=== PATIENT | female | born 1990 | race Two or more races ===

== ENCOUNTER 2016-10-30 00:07 | Inpatient (IN) | payer MEDICAID ==
[2016-10-30] MEDS ORDERED: Penicillin G Potassium 5 MILLUNITS in Sodium Chloride 0.9% 100 ML IV ONE (03:00)
[2016-10-30] MEDS ORDERED: Sodium Chloride 0.9% 100 ML ONE (03:04)
[2016-10-30] MEDS ORDERED: fentaNYL 100 MCG/2 ML SDV IVPUSH PRN (04:14)
[2016-10-30] MEDS ORDERED: Lidocaine 1% 50 ML MDV INJECT PRN (05:39)
[2016-10-30] MEDS ORDERED: Penicillin G Potassium 2.5 MILLUNITS in Sodium Chloride 0.9% 100 ML IV SCH (07:00)
[2016-10-30] MEDS ORDERED: Sodium Chloride 0.9% 10 ML Syringe FLUSH PRN ×2 (07:23→07:27)
[2016-10-30] MEDS ORDERED: Acetaminophen 325 MG Tab PO PRN (07:27)
--- NOTE | 2016-10-30 07:35 | PCM.LDHP ---
L&D History of Present Illness - General Date of Service: 10/30/16 (prom) Admit Problem/Dx: Patient Status Order with Admit Dx/Problem 10/30/16 07:24 Patient Status [ADT] Routine Patient Status: Outpatient Admission Diagnosis/Problem: - planned Reason for Admit: PROM gbs positive Nurse Unit Type: Labor and Delivery Admitting Physician: Liliana Cota Attending Physician: Liliana Cota Admission Diagnosis/Problem Admission Diagnosis/Problem - planned Source of Information: Patient History Limitations: Reports: No limitations - History of Present Illness Introduction:: This who is 26 yr old who is 37 6/7 weeks gestation presented with SROM at home, not in labor. She was Amniosure positive with lots of clear fluid. CE 1 /50/-1 at 0200 per nursing staff. Monitored for labor during the night. contractions every 6 minutes this morning at 0600. She is GBS positive and Penicillin was started after admission last night. Pitocin was started at 0600 this morning to augment contractions. At 0730 CE 3/100/-1 bloody show and leaking clear fluid. Baseline HR 130, moderate variability, Cat 1 strip. Labs ABO Bpos, Rubella immune, GBS pos, HIV? Timing/Duration: Reports: minutes: (6) Location, : Reports: Abdomen Quality: Reports: Pressure Severity: moderate Improves with: Reports: Rest Associated Symptoms: Reports: vaginal fluid - Related Data Allergies/Adverse Reactions: Allergies Allergy/AdvReac Type Severity Reaction Status Date / Time No Known Allergies Allergy Verified 06/19/13 16:16 Home Medications: Home Meds Vits #90/Iron Fum/FA [ Formula] 1 each PO ASDIRECTED 06/19/13 [ History] Past Medical History - Past Health History Medical/Surgical History: Denies Medical/Surgical History Genitourinary History: Reports: None SOCIAL MEDIA ASSISTANT History: Reports: , Spontaneous : 3 Para: 0 LMP (Approximate): (ANGELITA 11/14/16) Other OB/BYN History: Bilateral breast reduction Social & Family History - Family History OBGYN: Reports: None Musculoskeletal: Reports: Arthritis Other Musculoskeletal Family History: mom and grandma Other Oncologic Family History: grandpa but not sure what kind - Tobacco Use Smoking Status *Q: Never Smoker Second Hand Smoke Exposure: No - Caffeine Use Caffeine Use: Reports: Coffee Other Caffeine Use: 1 cup per day - Alcohol Use Days Per Week of Alcohol Use: 0 - Recreational Drug Use Recreational Drug Use: No H&P Review of Systems - Review of Systems: Review Of Systems: See Below General: Reports: no symptoms HEENT: Reports: no symptoms Pulmonary: Reports: no symptoms Cardiovascular: Reports: no symptoms Gastrointestinal: Reports: No symptoms Genitourinary: Reports: no symptoms Musculoskeletal: Reports: no symptoms Skin: Reports: no symptoms Psychiatric: Reports: no symptoms Neurological: Reports: no symptoms Hematologic/Lymphatic: Reports: no symptoms Immunologic: Reports: no symptoms L&D Exam - Exam Exam: See Below - Vital Signs Vital Signs: Last Vital Signs Temp 98.2 F 10/30/16 06:45 Pulse 81 10/30/16 07:00 Resp 16 10/30/16 07:00 BP 118/65 10/30/16 07:00 Pulse Ox 95 10/30/16 04:50 Weight: 190 lb - OB Specific Contraction Duration (sec): 110-140 Contraction Frequency (min): 2.5-4 Contraction Intensity: Moderate movement: active heart tones: present heart tones per min: 130 Heart Rate (FHR) Variability: Moderate (6-25 bmp) Presentation: Vertex - Kumar Score Kumar Score Cervix Position: Anterior Kumar Score Consistency: Soft [place] Score Effacement: >80% Kumar Score Dilation: 3-4 cm Kumar Score Infant's Station: +1, +2 Kumar Score Total: 12 - Exam General: alert, oriented HEENT: PERRLA, Conjunctiva clear, Mucosa moist & pink, Pupils equal Neck: supple, trachea midline Lungs: Clear to auscultation, Normal respiratory effort Cardiovascular: regular rate, regular rhythm Abdomen: normal bowel sounds, soft Genitourinary: Normal external exam Back Exam: normal inspection, full range of motion Extremities: normal inspection Skin: warm, dry, intact Neurological: cranial nerves intact, reflexes equal bilateral Psychiatric: alert, normal affect, normal mood - Patient Data Lab Results last 24 hrs: Laboratory Results - last 24 hr 10/30/16 10/30/16 10/30/16 Range/Units 00:26 00:26 00:38 WBC 10.6 (4.5-11.0) K/uL RBC 4.45 (3.30-5.50) M/uL Hgb 12.7 (12.0-15.0) g/dL Hct 38.4 (36.0-48.0) % MCV 86 (80-98) fL MCH 29 (27-31) pg MCHC 33 (32-36) % Plt Count 188 (150-400) K/uL Urine Color Yellow Urine Appearance Clear Urine pH 6.5 (4.5-8.0) Ur Specific [place] 1.015 (1.008-1.030) Urine Protein Negative (NEGATIVE) mg/dL Urine Glucose (UA) Normal (NEGATIVE) mg/dL Urine Ketones Negative (NEGATIVE) mg/dL Urine Occult Blood Large (NEGATIVE) Urine Nitrite Negative (NEGATIVE) Urine Bilirubin Negative (NEGATIVE) Urine Urobilinogen Normal (NORMAL) mg/dL Ur Leukocyte Esterase Negative (NEGATIVE) Urine RBC 10-20 H (0-5) Urine WBC 0-5 (0-5) Ur Epithelial Cells Moderate Amorphous Sediment Few Urine Bacteria Rare Urine Mucus Few Membrane Rupture Positive H (NEGATIVE) Urine Opiates Screen (NEGATIVE) Ur Oxycodone Screen (NEGATIVE) Urine Methadone Screen (NEGATIVE) Ur Propoxyphene Screen (NEGATIVE) Ur Barbiturates Screen (NEGATIVE) Ur Tricyclics Screen (NEGATIVE) Ur Phencyclidine Scrn (NEGATIVE) Ur Amphetamine Screen (NEGATIVE) U Methamphetamines Scrn (NEGATIVE) Urine MDMA Screen (NEGATIVE) U Benzodiazepines Scrn (NEGATIVE) U Cocaine Metab Screen (NEGATIVE) U Marijuana (THC) Screen (NEGATIVE) 10/30/16 Range/Units 01:31 WBC (4.5-11.0) K/uL RBC (3.30-5.50) M/uL Hgb (12.0-15.0) g/dL Hct (36.0-48.0) % MCV (80-98) fL MCH (27-31) pg MCHC (32-36) % Plt Count (150-400) K/uL Urine Color Urine Appearance Urine pH (4.5-8.0) Ur Specific [place] (1.008-1.030) Urine Protein (NEGATIVE) mg/dL Urine Glucose (UA) (NEGATIVE) mg/dL Urine Ketones (NEGATIVE) mg/dL Urine Occult Blood (NEGATIVE) Urine Nitrite (NEGATIVE) Urine Bilirubin (NEGATIVE) Urine Urobilinogen (NORMAL) mg/dL Ur Leukocyte Esterase (NEGATIVE) Urine RBC (0-5) Urine WBC (0-5) Ur Epithelial Cells Amorphous Sediment Urine Bacteria Urine Mucus Membrane Rupture (NEGATIVE) Urine Opiates Screen Negative (NEGATIVE) Ur Oxycodone Screen Negative (NEGATIVE) Urine Methadone Screen Negative (NEGATIVE) Ur Propoxyphene Screen Negative (NEGATIVE) Ur Barbiturates Screen Negative (NEGATIVE) Ur Tricyclics Screen Negative (NEGATIVE) Ur Phencyclidine Scrn Negative (NEGATIVE) Ur Amphetamine Screen Negative (NEGATIVE) U Methamphetamines Scrn Negative (NEGATIVE) Urine MDMA Screen Negative (NEGATIVE) U Benzodiazepines Scrn Negative (NEGATIVE) U Cocaine Metab Screen Negative (NEGATIVE) U Marijuana (THC) Screen Negative (NEGATIVE) Result Diagrams: 10/30/16 00:38 - Problem List (1) Intrauterine SNOMED Code(s): 65764724 ICD Code: Z33.1 - STATE, INCIDENTAL Status: Acute Current Visit : Yes (2) Active labor SNOMED Code(s): 39355325 ICD Code: [id number] - Status: Acute Current Visit: Yes (3) PROM (premature rupture of membranes) SNOMED Code(s): 72507686 ICD Code: O42.90 - ANNAMARIA ROM, 7TH0 BETW RUPT & ONST LABR, UNSP WEEKS OF GEST Status: Acute Current Visit: Yes Qualifiers: PROM onset of labor timing: onset of labor within 24 hours of rupture PROM gestational age: full term Qualified Code(s): O42.02 - Full-term premature rupture of membranes, onset of labor within 24 hours of rupture Problem List Initiated/Reviewed/Updated: Yes Orders Last 24hrs: Active Orders 24 hr Category Date Time Status Patient Status [ADT] Routine ADT 10/30/16 07:24 Ordered Antiembolic Devices [RC] .Routine Care 10/30/16 07:28 Ordered Bedrest Bathroom Privileges [RC] ASDIRECTED Care 10/30/16 07:23 Ordered Communication Order [RC] ASDIRECTED Care 10/30/16 07:24 Ordered Heart Tones [RC] PER UNIT ROUTINE Care 10/30/16 07:24 Ordered May Shower [RC] ASDIRECTED Care 10/30/16 07:23 Ordered Notify Provider Vital Signs [RC] PRN Care 10/30/16 07:23 Ordered Notify Provider [RC] PRN Care 10/30/16 07:24 Ordered OB Check [OM.PC] Click to Edit Care 10/30/16 00:24 Ordered Up ad Hoda [RC] ASDIRECTED Care 10/30/16 07:23 Ordered VTE/DVT Education [RC] Click to Edit Care 10/30/16 07:28 Ordered Vital Signs [RC] PER UNIT ROUTINE Care 10/30/16 07:24 Ordered Acetaminophen [Tylenol] Med 10/30/16 07:27 Ordered 650 mg PO Q4H PRN Lidocaine 1% [Xylocaine 1%] Med 10/30/16 05:39 Active 50 ml INJECT ASDIRECTED PRN Oxytocin/Normal Saline [Pitocin in NS 20 Units/1,000 ML Med 10/30/16 05:45 Active ] 20 unit in 1,000 ml IV TITRATE Penicillin G Potassium [Pfizerpen] 2.5 millunits Med 10/30/16 07:00 Active Sodium Chloride 0.9% [Normal Saline] 100 ml IV Q4H Sodium Chloride 0.9% [Saline Flush] Med 10/30/16 07:23 Ordered 10 ml FLUSH ASDIRECTED PRN Sodium Chloride 0.9% [Saline Flush] Med 10/30/16 07:27 Ordered 10 ml FLUSH ASDIRECTED PRN fentaNYL [Sublimaze] Med 10/30/16 04:14 Active 100 mcg IVPUSH ONETIME PRN DVT/VTE Prophylaxis Reflex [OM.PC] Routine Oth 10/30/16 07:27 Ordered Saline Lock Insert [OM.PC] Routine Oth 10/30/16 07:24 Ordered Saline Lock Insert [OM.PC] Routine Oth 10/30/16 07:27 Ordered Resuscitation Status Routine Resus Stat 10/30/16 07:23 Ordered Medication Orders Fentanyl (Sublimaze) 100 mcg IVPUSH ONETIME PRN PRN Reason: Pain Penicillin G Potassium 2.5 (millunits/ Sodium Chloride) 100 mls @ 100 mls/hr IV Q4H JEISON Oxytocin/Sodium Chloride (Pitocin In Ns 20 Units/1,000 Ml) 20 unit in 1,000 mls @ 3 mls/hr IV TITRATE JEISON; 1 MUNITS/MIN PRN Reason: Protocol Last Titration: 10/30/16 06:46 Dose: 3 munits/min, 9 mls/hr Admin: 10/30/16 06:17 Dose: 1 munits/min, 3 mls/hr Lidocaine HCl (Xylocaine 1%) 50 ml INJECT ASDIRECTED PRN PRN Reason: repair Sodium Chloride (Saline Flush) 10 ml FLUSH ASDIRECTED PRN PRN Reason: Keep Vein Open Assessment/Plan Comment:: 26 yr old 37 6/7 PROM augment contractions with pitocin GBS, treated ABO B pos Planning for vaginal delivery Monitor for active labor Pain medication per patient request continue antibiotics until delivery Call [facility] and get HIV record if unable to obtain do a stat HIV
[2016-10-30] MEDS: Penicillin G Potassium 2.5 MILLUNITS in Sodium Chloride 0.9% 100 ML IV SCH ×4 (08:23→21:05)
[2016-10-30] MEDS ORDERED: fentaNYL 100 MCG/2 ML SDV IVPUSH ONE (10:53)
[2016-10-30] MEDS ORDERED: ePHEDrine 50 MG/ML SDV ONE (11:19)
--- NOTE | 2016-10-30 11:45 | PCM.PNLD ---
Labor Progress Note - VS & Meds Vital Signs: Last Vital Signs Temp 97.6 F 10/30/16 08:00 Pulse 86 10/30/16 08:00 Resp 18 10/30/16 08:00 BP 108/86 10/30/16 08:00 Pulse Ox 95 10/30/16 04:50 Active Medications: Current Medications Acetaminophen (Tylenol) 650 mg PO Q4H PRN PRN Reason: Pain (Mild 1-3) and fever Fentanyl (Sublimaze) 100 mcg IVPUSH ONETIME PRN PRN Reason: Pain Last Admin: 10/30/16 09:36 Dose: 100 mcg Oxytocin/Sodium Chloride (Pitocin In Ns 20 Units/1,000 Ml) 20 unit in 1,000 mls @ 3 mls/hr IV TITRATE JEISON; 1 MUNITS/MIN PRN Reason: Protocol Last Titration: 10/30/16 06:46 Dose: 3 munits/min, 9 mls/hr Penicillin G Potassium 2.5 (millunits/ Sodium Chloride) 100 mls @ 200 mls/hr IV Q4H JEISON Last Admin: 10/30/16 08:23 Dose: 200 mls/hr Lidocaine HCl (Xylocaine 1%) 50 ml INJECT ASDIRECTED PRN PRN Reason: repair Sodium Chloride (Saline Flush) 10 ml FLUSH ASDIRECTED PRN PRN Reason: Keep Vein Open Sodium Chloride (Saline Flush) 10 ml FLUSH ASDIRECTED PRN PRN Reason: Keep Vein Open Discontinued Medications Ephedrine Sulfate (Ephedrine Sulfate) Confirm Administered Dose 50 mg .ROUTE .STK-MED ONE Stop: 10/30/16 11:20 Fentanyl (Sublimaze) 100 mcg IVPUSH ONETIME ONE Stop: 10/30/16 10:54 Last Admin: 10/30/16 11:00 Dose: 100 mcg Penicillin G Potassium 5 (millunits/ Sodium Chloride) 100 mls @ 100 mls/hr IV ONETIME ONE Stop: 10/30/16 03:59 Last Admin: 10/30/16 03:11 Dose: 100 mls/hr Penicillin G Potassium 2.5 (millunits/ Sodium Chloride) 100 mls @ 100 mls/hr IV Q4H JEISON Last Admin: 10/30/16 10:04 Dose: Not Given Sodium Chloride (Normal Saline) Confirm Administered Dose 100 mls @ as directed .ROUTE .STK-MED ONE Stop: 10/30/16 03:05 Last Admin: 10/30/16 03:17 Dose: Not Given - Uterine Contractions Uterine Monitoring Mode: Palpation Contraction Frequency (min): 2-5 Contraction Duration (sec): 100-160 Contraction Intensity: Moderate to Strong Uterine Resting Tone: Soft - Monitoring Heart Rate (FHR) Variability: Moderate (6-25 bmp) Accelerations: Present, 15x15 Decelerations: Early Strip Review: Category I - Vaginal Exam Dilation (cm): 6-7 Effacement (Percent): 100 Station: 1 Cervical Position: Anterior Sterile Vaginal Exam Performed By: Liliana Cota Vaginal Exam Comment: Nice progress to active labor - Labor Progress (Free Text) Labor Progress: Epidural for pain management per patient request. Plan to let her labor down after complete planning vaginal delivery
[2016-10-30] MEDS ORDERED: Ropivacaine 100 ML ONE (11:55)
[2016-10-30] MEDS ORDERED: Lanolin 100% Cream 40 GM Tube TOP PRN (13:53)
[2016-10-30] MEDS ORDERED: Acetaminophen/Codeine 300-30 MG Tab PO PRN (13:53)
--- NOTE | 2016-10-30 14:07 | PCM.DEL ---
L & D Note - General Info Date of Service: 10/30/16 () Mother's Due Date: 11/14/16 - Delivery Note Labor: spontaneous Delivery Outcome: Livebirth Delivery Method: Spontaneous Vaginal Delivery Delivery Mode: Spontaneous Presentation: Vertex Nuchal cord: none Anesthesia Type: Epidural Amniotic Fluid Description: Clear Episiotomy Type: None Laceration: 1st degree, perineal (2 stitch repair) Suture type: chromic Suture size: 3-0 Placenta: intact, spontaneous Cord: 3 vessels Estimated blood loss: 50 Resuscitation needed: No : bulb syringe, stimulated, warmed, blanket used Provider: Liliana Cota Score 1 min: 9 Score 5 min: 9 Score 10 min: 9 Second Stage Interventions: Reports: Laboring Down, Pushing Effectively, Pushing , McRobert's Position Delivery Comments (Free Text/Narrative):: This 26 year old delivered a viable female in RAMESH position via at 1335. Baby was placed in mother's abdomen where she was dried and stimulated. Apgars of 9,9,9. Three vessel cord. She transitioned well. Placenta expressed spontaneously intact chowdhury with active management of third stage used. Small perineal tear repaired with 2 stitches of 3-0 vicryl. No lacerations found to vagina, cervix, rectum. EBL 50cc Mother and baby to post and nursery in stable condition. weight 6-4.7 First stage 1615-2777 Second stage 9620-9875, was complete at 1248 but labored down before pushing Third stage 9308-3722 - General Info Date of Service: 10/30/16 Admission Dx/Problem (Free Text): Patient Status Order with Admit Dx/Problem 10/30/16 07:24 Patient Status [ADT] Routine Patient Status: Outpatient Admission Diagnosis/Problem: - planned Reason for Admit: PROM gbs positive Nurse Unit Type: Labor and Delivery Admitting Physician: Liliana Cota Attending Physician: Liliana Cota Admission Diagnosis/Problem Admission Diagnosis/Problem - planned Functional Status: Reports: pain controlled - Review of Systems General: Reports: no symptoms HEENT: Reports: no symptoms Pulmonary: Reports: no symptoms Cardiovascular: Reports: no symptoms Gastrointestinal: Reports: No symptoms Genitourinary: Reports: no symptoms Musculoskeletal: Reports: no symptoms Skin: Reports: no symptoms Neurological: Reports: no symptoms Psychiatric: Reports: no symptoms - Patient Data Vitals - most recent: Last Vital Signs Temp 98.5 F 10/30/16 12:00 Pulse 96 10/30/16 13:00 Resp 16 10/30/16 13:00 BP 110/65 10/30/16 13:00 Pulse Ox 99 10/30/16 13:00 Weight - most recent: 190 lb I&O - last 24 hours: Intake & Output 10/29/16 10/30/16 10/30/16 22:59 06:59 14:59 Intake Total 1000 100 Balance 1000 100 Lab Results last 24 hrs: Laboratory Results - last 24 hr 10/30/16 10/30/16 10/30/16 Range/Units 00:26 00:26 00:38 WBC 10.6 (4.5-11.0) K/uL RBC 4.45 (3.30-5.50) M/uL Hgb 12.7 (12.0-15.0) g/dL Hct 38.4 (36.0-48.0) % MCV 86 (80-98) fL MCH 29 (27-31) pg MCHC 33 (32-36) % Plt Count 188 (150-400) K/uL Urine Color Yellow Urine Appearance Clear Urine pH 6.5 (4.5-8.0) Ur Specific [place] 1.015 (1.008-1.030) Urine Protein Negative (NEGATIVE) mg/dL Urine Glucose (UA) Normal (NEGATIVE) mg/dL Urine Ketones Negative (NEGATIVE) mg/dL Urine Occult Blood Large (NEGATIVE) Urine Nitrite Negative (NEGATIVE) Urine Bilirubin Negative (NEGATIVE) Urine Urobilinogen Normal (NORMAL) mg/dL Ur Leukocyte Esterase Negative (NEGATIVE) Urine RBC 10-20 H (0-5) Urine WBC 0-5 (0-5) Ur Epithelial Cells Moderate Amorphous Sediment Few Urine Bacteria Rare Urine Mucus Few Membrane Rupture Positive H (NEGATIVE) Urine Opiates Screen (NEGATIVE) Ur Oxycodone Screen (NEGATIVE) Urine Methadone Screen (NEGATIVE) Ur Propoxyphene Screen (NEGATIVE) Ur Barbiturates Screen (NEGATIVE) Ur Tricyclics Screen (NEGATIVE) Ur Phencyclidine Scrn (NEGATIVE) Ur Amphetamine Screen (NEGATIVE) U Methamphetamines Scrn (NEGATIVE) Urine MDMA Screen (NEGATIVE) U Benzodiazepines Scrn (NEGATIVE) U Cocaine Metab Screen (NEGATIVE) U Marijuana (THC) Screen (NEGATIVE) 10/30/16 Range/Units 01:31 WBC (4.5-11.0) K/uL RBC (3.30-5.50) M/uL Hgb (12.0-15.0) g/dL Hct (36.0-48.0) % MCV (80-98) fL MCH (27-31) pg MCHC (32-36) % Plt Count (150-400) K/uL Urine Color Urine Appearance Urine pH (4.5-8.0) Ur Specific [place] (1.008-1.030) Urine Protein (NEGATIVE) mg/dL Urine Glucose (UA) (NEGATIVE) mg/dL Urine Ketones (NEGATIVE) mg/dL Urine Occult Blood (NEGATIVE) Urine Nitrite (NEGATIVE) Urine Bilirubin (NEGATIVE) Urine Urobilinogen (NORMAL) mg/dL Ur Leukocyte Esterase (NEGATIVE) Urine RBC (0-5) Urine WBC (0-5) Ur Epithelial Cells Amorphous Sediment Urine Bacteria Urine Mucus Membrane Rupture (NEGATIVE) Urine Opiates Screen Negative (NEGATIVE) Ur Oxycodone Screen Negative (NEGATIVE) Urine Methadone Screen Negative (NEGATIVE) Ur Propoxyphene Screen Negative (NEGATIVE) Ur Barbiturates Screen Negative (NEGATIVE) Ur Tricyclics Screen Negative (NEGATIVE) Ur Phencyclidine Scrn Negative (NEGATIVE) Ur Amphetamine Screen Negative (NEGATIVE) U Methamphetamines Scrn Negative (NEGATIVE) Urine MDMA Screen Negative (NEGATIVE) U Benzodiazepines Scrn Negative (NEGATIVE) U Cocaine Metab Screen Negative (NEGATIVE) U Marijuana (THC) Screen Negative (NEGATIVE) Med Orders - Current: Current Medications Acetaminophen (Tylenol) 650 mg PO Q4H PRN PRN Reason: Pain (Mild 1-3) and fever Acetaminophen/Codeine Phosphate (Tylenol With Codeine No.3 300mg/30mg) 1 tab PO Q4H PRN PRN Reason: Pain (moderate 4-6) Emollient Ointment (Lansinoh Hpa) 1 gm TOP ASDIRECTED PRN PRN Reason: Sore Nipples Fentanyl (Sublimaze) 100 mcg IVPUSH ONETIME PRN PRN Reason: Pain Last Admin: 10/30/16 09:36 Dose: 100 mcg Oxytocin/Sodium Chloride (Pitocin In Ns 20 Units/1,000 Ml) 20 unit in 1,000 mls @ 3 mls/hr IV TITRATE JEISON; 1 MUNITS/MIN PRN Reason: Protocol Last Titration: 10/30/16 06:46 Dose: 3 munits/min, 9 mls/hr Penicillin G Potassium 2.5 (millunits/ Sodium Chloride) 100 mls @ 200 mls/hr IV Q4H JEISON Last Admin: 10/30/16 12:18 Dose: 200 mls/hr Ibuprofen (Motrin) 600 mg PO Q6H PRN PRN Reason: mild pain or fever Lidocaine HCl (Xylocaine 1%) 50 ml INJECT ASDIRECTED PRN PRN Reason: repair Sodium Chloride (Saline Flush) 10 ml FLUSH ASDIRECTED PRN PRN Reason: Keep Vein Open Sodium Chloride (Saline Flush) 10 ml FLUSH ASDIRECTED PRN PRN Reason: Keep Vein Open Discontinued Medications Ephedrine Sulfate (Ephedrine Sulfate) Confirm Administered Dose 50 mg .ROUTE .[employer]-MED ONE Stop: 10/30/16 11:20 Fentanyl (Sublimaze) 100 mcg IVPUSH ONETIME ONE Stop: 10/30/16 10:54 Last Admin: 10/30/16 11:00 Dose: 100 mcg Penicillin G Potassium 5 (millunits/ Sodium Chloride) 100 mls @ 100 mls/hr IV ONETIME ONE Stop: 10/30/16 03:59 Last Admin: 10/30/16 03:11 Dose: 100 mls/hr Penicillin G Potassium 2.5 (millunits/ Sodium Chloride) 100 mls @ 100 mls/hr IV Q4H [facility] Last Admin: 10/30/16 10:04 Dose: Not Given Sodium Chloride (Normal Saline) Confirm Administered Dose 100 mls @ as directed .ROUTE .[employer]-MED ONE Stop: 10/30/16 03:05 Last Admin: 10/30/16 03:17 Dose: Not Given Ropivacaine (Naropin 0.2%) Confirm Administered Dose 100 mls @ as directed .ROUTE .[employer]-MED ONE Stop: 10/30/16 11:56 - Exam General: alert, oriented HEENT: Pupils equal, Pupils reactive Neck: supple Lungs: Clear to auscultation, Normal respiratory effort Cardiovascular: regular rate, regular rhythm Abdomen: soft, no tenderness (Female) Exam: Normal external exam, Enlarged uterus, Vaginal bleeding Back Exam: normal inspection, full range of motion Extremities: no edema Skin: warm, dry, intact Wound/Incisions: healing well Neurological: no new focal deficit Psy/Mental Status: alert, normal affect, normal mood - Problem List & Annotations (1) Intrauterine SNOMED Code(s): 39148600 Code(s): Z33.1 - STATE, INCIDENTAL Status: Acute Current Visit: Yes (2) Active labor SNOMED Code(s): 58750268 Code(s): QSE8500 - Status: Acute Current Visit: Yes (3) PROM (premature rupture of membranes) SNOMED Code(s): 82310178 Code(s): O42.90 - ANNAMARIA ROM, 7TH0 BETW RUPT & ONST LABR, UNSP WEEKS OF GEST Status: Acute Current Visit: Yes Qualifiers: PROM onset of labor timing: onset of labor within 24 hours of rupture PROM gestational age: full term Qualified Code(s): O42.02 - Full-term premature rupture of membranes, onset of labor within 24 hours of rupture (4) () SNOMED Code(s): 652679317 Code(s): Z78.9 - OTHER SPECIFIED HEALTH STATUS Status: Acute Current Visit: Yes (5) Delivery normal SNOMED Code(s): 33346952 Code(s): O80 - ENCOUNTER FOR FULL-TERM UNCOMPLICATED DELIVERY; Z37.9 - OUTCOME OF DELIVERY, UNSPECIFIED Status: Acute Current Visit: Yes - Problem List Review Problem List Initiated/Reviewed/Updated: Yes - My Orders Last 24 Hours: My Active Orders 10/30/16 00:24 OB Check [OM.PC] Click to Edit 10/30/16 04:14 fentaNYL [Sublimaze] 100 mcg IVPUSH ONETIME PRN 10/30/16 05:39 Lidocaine 1% [Xylocaine 1%] 50 ml INJECT ASDIRECTED PRN 10/30/16 05:45 Oxytocin/Normal Saline [Pitocin in NS 20 Units/1,000 ML] 20 unit in 1,000 ml IV TITRATE 10/30/16 07:23 Bedrest Bathroom Privileges [RC] ASDIRECTED May Shower [RC] ASDIRECTED Notify Provider Vital Signs [RC] PRN Up ad Hoda [RC] ASDIRECTED Sodium Chloride 0.9% [Saline Flush] 10 ml FLUSH ASDIRECTED PRN Resuscitation Status Routine 10/30/16 07:24 Communication Order [RC] ASDIRECTED Notify Provider [RC] PRN Vital Signs [RC] PER UNIT ROUTINE Saline Lock Insert [OM.PC] Routine 10/30/16 07:27 Acetaminophen [Tylenol] 650 mg PO Q4H PRN Sodium Chloride 0.9% [Saline Flush] 10 ml FLUSH ASDIRECTED PRN DVT/VTE Prophylaxis Reflex [OM.PC] Routine Saline Lock Insert [OM.PC] Routine 10/30/16 07:28 Antiembolic Devices [RC] .Routine VTE/DVT Education [RC] Click to Edit 10/30/16 08:00 Penicillin G Potassium [Pfizerpen] 2.5 millunits Sodium Chloride 0.9% [Normal Saline] 100 ml IV Q4H 10/30/16 13:53 Patient Status [ADT] Routine Vital Signs [RC] PFP Acetaminophen/Codeine [Tylenol with Codeine No.3 300MG/30MG] 1 tab PO Q4H PRN Ibuprofen [Motrin] 600 mg PO Q6H PRN Lanolin [Lansinoh HPA] 1 gm TOP ASDIRECTED PRN Assess Lochia [WOMSER] Per Unit Routine Assess Uterine Involution [WOMSER] Per Unit Routine 10/30/16 13:56 Ice Therapy [OM.PC] Per Unit Routine Perineal Care [OM.PC] Per Unit Routine Peripheral IV Discontinue [OM.PC] Routine Sitz Bath [OM.PC] Per Unit Routine 10/30/16 Dinner Regular Diet [DIET] 10/31/16 05:11 CBC WITH AUTO DIFF [HEME] AM - Assessment Assessment:: This 26 year old G3 now P1 at 1335 a viable female , no complications GBS positive and treated.. 48 hour stay. Routine cares - Plan Plan:: 26 yr old 37 6/7 PROM augment contractions with pitocin GBS, treated ABO B pos Planning for vaginal delivery Monitor for active labor Pain medication per patient request continue antibiotics until delivery Call [facility] and get HIV record if unable to obtain do a stat HIV 10/30/16 Routine care 48 hour stay support
[2016-10-30] MEDS: Ibuprofen 600 MG Tab PO PRN ×2 (14:45→23:26)
--- NOTE | 2016-10-30 23:38 | ANES ---
DATE OF SERVICE: 10/30/2016 Ms. Bonilla is a 26-year-old female in the obstetrics unit. Matilde Cota asked me to come and evaluate her for a labor epidural. She is a 3 approximately 7 cm and having painful contractions. The risks and benefits of the procedure were explained to the patient and she wished to proceed with a labor epidural. Her back was prepped x3 with Betadine 1% lidocaine skin local was used. The epidural was placed at L3-L4 using a 17- gauge Tuohy needle loss of resistance technique. The epidural had very good feel throughout and the epidural space was easily identified. There was negative CSF, negative blood, and negative paresthesias noted. Therefore, a catheter was threaded to 13 cm at the skin. There were negative CSF, negative blood, and negative paresthesias with catheter as well. A 3 mL test dose of 1.5% lidocaine with epinephrine was given. This test dose was negative. The catheter was then secured with Tegaderm and tape. She was placed in a supine position. I did give her a bolus of 0.2% ropivacaine 12 mL. A bolus had very good results and I started drip of 0.2% ropivacaine at 12 mL/h. The vital signs remained stable throughout the procedure and they have elected as well. She had good relief from the epidural and we will continue to monitor her throughout her labor and delivery stay. Zander Molina CRNA /[id number]
[2016-10-31] MEDS: Ibuprofen 600 MG Tab PO PRN ×2 (07:35→21:09)
--- NOTE | 2016-10-31 08:40 | PCM.PNPP ---
- General Info Date of Service: 10/31/16 ( Day 1) Admission Dx/Problem (Free Text): Patient Status Order with Admit Dx/Problem 10/30/16 07:24 Patient Status [ADT] Routine Patient Status: Outpatient Admission Diagnosis/Problem: - planned Reason for Admit: PROM gbs positive Nurse Unit Type: Labor and Delivery Admitting Physician: Liliana Cota Attending Physician: Liliana Cota Admission Diagnosis/Problem Admission Diagnosis/Problem - planned Functional Status: Reports: pain controlled - Review of Systems General: Reports: no symptoms HEENT: Reports: no symptoms Pulmonary: Reports: no symptoms Cardiovascular: Reports: no symptoms Gastrointestinal: Reports: No symptoms Genitourinary: Reports: no symptoms Musculoskeletal: Reports: no symptoms Skin: Reports: no symptoms Neurological: Reports: no symptoms Psychiatric: Reports: no symptoms - General Info Date of Service: 10/31/16 - Patient Data Vital Signs - most recent: Last Vital Signs Temp 36.1 C 10/31/16 07:22 Pulse 68 10/31/16 07:22 Resp 16 10/31/16 07:22 BP 115/67 10/31/16 07:22 Pulse Ox 97 10/31/16 07:22 Weight - most recent: 86.183 kg I&O - last 24 hours: Intake & Output 10/30/16 10/31/16 10/31/16 22:59 06:59 14:59 Intake Total 900 900 Output Total 300 Balance 600 900 Lab Results - last 24 hrs: Laboratory Results - last 24 hr 10/31/16 Range/Units 05:00 WBC 11.5 H (4.5-11.0) K/uL RBC 4.22 (3.30-5.50) M/uL Hgb 12.2 (12.0-15.0) g/dL Hct 36.6 (36.0-48.0) % MCV 87 (80-98) fL MCH 29 (27-31) pg MCHC 33 (32-36) % Plt Count 180 (150-400) K/uL Neut % (Auto) 73 H (36-66) % Lymph % (Auto) 16 L (24-44) % [place] % (Auto) 11 H (2-6) % Eos % (Auto) 1 L (2-4) % Baso % (Auto) 0 (0-1) % Med Orders - Current: Current Medications Acetaminophen (Tylenol) 650 mg PO Q4H PRN PRN Reason: Pain (Mild 1-3) and fever Acetaminophen/Codeine Phosphate (Tylenol With Codeine No.3 300mg/30mg) 1 tab PO Q4H PRN PRN Reason: Pain (moderate 4-6) Emollient Ointment (Lansinoh Hpa) 0 gm TOP ASDIRECTED PRN PRN Reason: Sore Nipples Ibuprofen (Motrin) 600 mg PO Q6H PRN PRN Reason: mild pain or fever Last Admin: 10/31/16 07:35 Dose: 600 mg Lidocaine HCl (Xylocaine 1%) 50 ml INJECT ASDIRECTED PRN PRN Reason: repair Sodium Chloride (Saline Flush) 10 ml FLUSH ASDIRECTED PRN PRN Reason: Keep Vein Open Sodium Chloride (Saline Flush) 10 ml FLUSH ASDIRECTED PRN PRN Reason: Keep Vein Open Discontinued Medications Ephedrine Sulfate (Ephedrine Sulfate) Confirm Administered Dose 50 mg .ROUTE .STK-MED ONE Stop: 10/30/16 11:20 Last Admin: 10/30/16 14:47 Dose: Not Given Fentanyl (Sublimaze) 100 mcg IVPUSH ONETIME PRN PRN Reason: Pain Last Admin: 10/30/16 09:36 Dose: 100 mcg Fentanyl (Sublimaze) 100 mcg IVPUSH ONETIME ONE Stop: 10/30/16 10:54 Last Admin: 10/30/16 11:00 Dose: 100 mcg Penicillin G Potassium 5 (millunits/ Sodium Chloride) 100 mls @ 100 mls/hr IV ONETIME ONE Stop: 10/30/16 03:59 Last Admin: 10/30/16 03:11 Dose: 100 mls/hr Penicillin G Potassium 2.5 (millunits/ Sodium Chloride) 100 mls @ 100 mls/hr IV Q4H JEISON Last Admin: 10/30/16 10:04 Dose: Not Given Sodium Chloride (Normal Saline) Confirm Administered Dose 100 mls @ as directed .ROUTE .STK-MED ONE Stop: 10/30/16 03:05 Last Admin: 10/30/16 03:17 Dose: Not Given Oxytocin/Sodium Chloride (Pitocin In Ns 20 Units/1,000 Ml) 20 unit in 1,000 mls @ 3 mls/hr IV TITRATE JEISON; 1 MUNITS/MIN PRN Reason: Protocol Last Titration: 10/30/16 06:46 Dose: 3 munits/min, 9 mls/hr Penicillin G Potassium 2.5 (millunits/ Sodium Chloride) 100 mls @ 200 mls/hr IV Q4H JEISON Last Admin: 10/30/16 21:05 Dose: Not Given Ropivacaine (Naropin 0.2%) Confirm Administered Dose 100 mls @ as directed .ROUTE .RUST-MED ONE Stop: 10/30/16 11:56 - Infant Interaction Disposition, : [place] at Bedside Infant Interaction: Holding Infant Infant Feeding: Attempted ; Nursed Fair/Poor, Difficulty with Latch -on, Encouraged to Breastfeed Support Person: Significant Other - Recovery Exam Fundal Tone: Firm Fundal Level: 2 Fingerbreadths Below Umbilicus Fundal Placement: Right Lochia Amount: Moderate Lochia Color: [place]/Red Perineum Description: Edematous (minimal swelling today) Episiotomy/Laceration: Approximated Bladder Status: Voiding - Exam General: alert, oriented HEENT: Pupils equal Neck: supple Lungs: Clear to auscultation, Normal respiratory effort Cardiovascular: regular rate, regular rhythm Abdomen: bowel sounds present, soft, no tenderness, no distension Extremities: edema (trace) Skin: warm, dry, intact Wound/Incisions: healing well Neurological: no new focal deficit Psy/Mental Status: alert, normal affect, normal mood - Problem List & Annotations (1) Positive GBS test SNOMED Code(s): 8731719420661, 4493601167211 Code(s): B95.1 - STREPTOCOCCUS, GROUP B, CAUSING DISEASES CLASSD [id number] Status: Acute Current Visit: Yes (2) (infant) SNOMED Code(s): 767356553 Code(s): Z78.9 - OTHER SPECIFIED HEALTH STATUS Status: Acute Current Visit: Yes (3) Intrauterine SNOMED Code(s): 00974765 Code(s): Z33.1 - STATE, INCIDENTAL Status: Acute Current Visit: Yes - Problem List Review Problem List Initiated/Reviewed/Updated: Yes - Assessment Assessment:: This 26 year old G3 now P1 at 1335 a viable female , no complications GBS positive and treated.. 48 hour stay. Routine cares 10/31/2016 Normal Vaginal Delivery Day One fair/Poor GBS positive and treated Hgb 12.2 down from 12.7 yesterday Perineum minimal swelling-laceration intake Bleeding decreasing Voiding and Passing gas - Plan Plan:: 26 yr old 37 6 PROM augment contractions with pitocin GBS, treated ABO B pos Planning for vaginal delivery Monitor for active labor Pain medication per patient request continue antibiotics until delivery Call [facility] and get HIV record if unable to obtain do a stat HIV 10/30/16 Routine care 48 hour stay support 10/31/2016 Continue Routine Cares Continue to support and encourage GBS positive and treated-won't discharge till tomorrow
--- NOTE | 2016-11-01 07:18 | PCM.PNPP ---
- General Info Date of Service: 11/01/16 (BIrthday plus 2) Admission Dx/Problem (Free Text): Patient Status Order with Admit Dx/Problem 10/30/16 07:24 Patient Status [ADT] Routine Patient Status: Outpatient Admission Diagnosis/Problem: - planned Reason for Admit: PROM gbs positive Nurse Unit Type: Labor and Delivery Admitting Physician: Liliana Cota Attending Physician: Liliana Cota Admission Diagnosis/Problem Admission Diagnosis/Problem - planned Functional Status: Reports: pain controlled - Review of Systems General: Reports: no symptoms HEENT: Reports: no symptoms Pulmonary: Reports: no symptoms Cardiovascular: Reports: no symptoms Gastrointestinal: Reports: No symptoms Genitourinary: Reports: no symptoms Musculoskeletal: Reports: no symptoms Skin: Reports: no symptoms Neurological: Reports: no symptoms Psychiatric: Reports: no symptoms - General Info Date of Service: 11/01/16 - Patient Data Vital Signs - most recent: Last Vital Signs Temp 96.7 F 11/01/16 05:56 Pulse 84 11/01/16 05:56 Resp 18 11/01/16 05:56 BP 142/83 H 11/01/16 05:56 Pulse Ox 99 11/01/16 05:56 Weight - most recent: 190 lb I&O - last 24 hours: Intake & Output 10/31/16 11/01/16 11/01/16 22:59 06:59 14:59 Intake Total 400 Balance 400 Med Orders - Current: Current Medications Acetaminophen (Tylenol) 650 mg PO Q4H PRN PRN Reason: Pain (Mild 1-3) and fever Acetaminophen/Codeine Phosphate (Tylenol With Codeine No.3 300mg/30mg) 1 tab PO Q4H PRN PRN Reason: Pain (moderate 4-6) Emollient Ointment (Lansinoh Hpa) 0 gm TOP ASDIRECTED PRN PRN Reason: Sore Nipples Ibuprofen (Motrin) 600 mg PO Q6H PRN PRN Reason: mild pain or fever Last Admin: 10/31/16 21:09 Dose: 600 mg Lidocaine HCl (Xylocaine 1%) 50 ml INJECT ASDIRECTED PRN PRN Reason: repair Sodium Chloride (Saline Flush) 10 ml FLUSH ASDIRECTED PRN PRN Reason: Keep Vein Open Discontinued Medications Ephedrine Sulfate (Ephedrine Sulfate) Confirm Administered Dose 50 mg .ROUTE .STK-MED ONE Stop: 10/30/16 11:20 Last Admin: 10/30/16 14:47 Dose: Not Given Fentanyl (Sublimaze) 100 mcg IVPUSH ONETIME PRN PRN Reason: Pain Last Admin: 10/30/16 09:36 Dose: 100 mcg Fentanyl (Sublimaze) 100 mcg IVPUSH ONETIME ONE Stop: 10/30/16 10:54 Last Admin: 10/30/16 11:00 Dose: 100 mcg Penicillin G Potassium 5 (millunits/ Sodium Chloride) 100 mls @ 100 mls/hr IV ONETIME ONE Stop: 10/30/16 03:59 Last Admin: 10/30/16 03:11 Dose: 100 mls/hr Penicillin G Potassium 2.5 (millunits/ Sodium Chloride) 100 mls @ 100 mls/hr IV Q4H JEISON Last Admin: 10/30/16 10:04 Dose: Not Given Sodium Chloride (Normal Saline) Confirm Administered Dose 100 mls @ as directed .ROUTE .STK-MED ONE Stop: 10/30/16 03:05 Last Admin: 10/30/16 03:17 Dose: Not Given Oxytocin/Sodium Chloride (Pitocin In Ns 20 Units/1,000 Ml) 20 unit in 1,000 mls @ 3 mls/hr IV TITRATE JEISON; 1 MUNITS/MIN PRN Reason: Protocol Last Titration: 10/30/16 06:46 Dose: 3 munits/min, 9 mls/hr Penicillin G Potassium 2.5 (millunits/ Sodium Chloride) 100 mls @ 200 mls/hr IV Q4H JEISON Last Admin: 10/30/16 21:05 Dose: Not Given Ropivacaine (Naropin 0.2%) Confirm Administered Dose 100 mls @ as directed .ROUTE .STK-MED ONE Stop: 10/30/16 11:56 - Infant Interaction Disposition, : [place] at Bedside Interaction: Holding Infant Feeding: Attempted ; Nursed Fair/Poor, Difficulty with Latch -on, Encouraged to Breastfeed Support Person: Significant Other - Recovery Exam Fundal Tone: Firm Fundal Level: 2 Fingerbreadths Below Umbilicus Fundal Placement: Midline Lochia Amount: Scant Lochia Color: [place] Perineum Description: Intact, Minimal Bruising/Swelling Episiotomy/Laceration: Approximated Bladder Status: Voiding Urinary Elimination: Voided - Exam General: alert, oriented HEENT: Pupils equal Neck: supple Lungs: Clear to auscultation, Normal respiratory effort Cardiovascular: regular rate, regular rhythm Abdomen: bowel sounds present, soft, no tenderness, no distension Extremities: no edema Skin: warm, dry, intact Wound/Incisions: healing well Neurological: no new focal deficit Psy/Mental Status: alert, normal affect, normal mood - Problem List & Annotations (1) Intrauterine SNOMED Code(s): 02850590 Code(s): Z33.1 - STATE, INCIDENTAL Status: Acute Current Visit: Yes (2) Active labor SNOMED Code(s): 02138655 Code(s): UOZ8159 - Status: Acute Current Visit: Yes (3) PROM (premature rupture of membranes) SNOMED Code(s): 09694495 Code(s): O42.90 - ANNAMARIA ROM, 7TH0 BETW RUPT & ONST LABR, UNSP WEEKS OF GEST Status: Acute Current Visit: Yes Qualifiers: PROM onset of labor timing: onset of labor within 24 hours of rupture PROM gestational age: full term Qualified Code(s): O42.02 - Full-term premature rupture of membranes, onset of labor within 24 hours of rupture (4) (infant) SNOMED Code(s): 018069598 Code(s): Z78.9 - OTHER SPECIFIED HEALTH STATUS Status: Acute Current Visit: Yes (5) Delivery normal SNOMED Code(s): 47576035 Code(s): O80 - ENCOUNTER FOR FULL-TERM UNCOMPLICATED DELIVERY; Z37.9 - OUTCOME OF DELIVERY, UNSPECIFIED Status: Acute Current Visit: Yes - Problem List Review Problem List Initiated/Reviewed/Updated: Yes - Assessment Assessment:: This 26 year old G3 now P1 at 1335 a viable female , no complications GBS positive and treated.. 48 hour stay. Routine cares 10/31/2016 Normal Vaginal Delivery Day One fair/Poor GBS positive and treated Hgb 12.2 down from 12.7 yesterday Perineum minimal swelling-laceration intake Bleeding decreasing Voiding and Passing gas 11/01/16 doing well is better is using breast shield with success HGB 12.2 No fever or problems wants to go home - Plan Plan:: 26 yr old 37 02/05 PROM augment contractions with pitocin GBS, treated ABO B pos Planning for vaginal delivery Monitor for active labor Pain medication per patient request continue antibiotics until delivery Call [facility] and get HIV record if unable to obtain do a stat HIV 10/30/16 Routine care 48 hour stay support 10/31/2016 Continue Routine Cares Continue to support and encourage GBS positive and treated-won't discharge till tomorrow 11/01/16 Home today see me in 6 weeks for a post visit
[2016-11-01 11:29] VITALS: BP 108/67
== END 2016-11-01 14:52 | disposition home or self-care (01) | DRG 775 ==
LOC: JP.OBCHECK 00:07 → JP.OB 02:50 → JP.MS 13:35 → JP.OB 13:35 → OBSVTOIN 13:35
PROVIDERS: ADMIT Nurse Practitioner Family; ATTEND Nurse Practitioner Family
PROC: 00HU33Z Insertion of Infusion Device into Spinal Canal, Percutaneous Approach (ICD-10-PCS; principal; 2016-10-30)
PROC: 0HQ9XZZ Repair Perineum Skin, External Approach (ICD-10-PCS; 2016-10-30)
PROC: 10E0XZZ Delivery of Products of Conception, External Approach (ICD-10-PCS; 2016-10-30)
DX: O42.02 Full-term premature rupture of membranes, onset of labor within 24 hours of rupture (principal); O99.824 Streptococcus B carrier state complicating childbirth; O70.0 First degree perineal laceration during delivery; Z3A.38 38 weeks gestation of pregnancy; Z37.0 Single live birth
CPT/HCPCS: 36415; 51702; 80305; 81001; 84112; 85025; 85027; 88307; 99211; A9270-GY; J2540; J2590; J2795; J3010; J7030